=== PATIENT | female | born 1950 | race Caucasian/White ===

== ENCOUNTER → 2017-09-04 | Outpatient (CLI) | payer BC, MEDICARE | LOC: M WHC 10:53 | DX: Z12.31 Encounter for screening mammogram for malignant neoplasm of breast (principal); N95.9 Unspecified menopausal and perimenopausal disorder; Z78.0 Asymptomatic menopausal state; Z12.72 Encounter for screening for malignant neoplasm of vagina; Z92.29 Personal history of other drug therapy; Z12.12 Encounter for screening for malignant neoplasm of rectum | CPT/HCPCS: G0123 ==

== ENCOUNTER → 2017-09-04 | Outpatient (REF) | payer MEDICARE, BC | LOC: M SFHCWAGY 11:30 | DX: Z12.72 Encounter for screening for malignant neoplasm of vagina (principal) ==

== ENCOUNTER 2018-01-16 06:44 | Day surgery (SDC) | payer BC, MEDICARE, MEDICAID ==
[2018-01-16] MEDS ORDERED: PROPOFOL 200 MG/20 ML VIAL As Ordered ×4 (07:15)
[2018-01-16] MEDS: NS 1,000 ML IV ×2 (07:16)
== END 2018-01-16 09:13 | disposition home or self-care (01) ==
LOC: M OPP 06:44
DX: Z12.11 Encounter for screening for malignant neoplasm of colon (principal); D12.0 Benign neoplasm of cecum; D12.3 Benign neoplasm of transverse colon; D12.4 Benign neoplasm of descending colon; K57.30 Diverticulosis of large intestine without perforation or abscess without bleeding; I10 Essential (primary) hypertension; E78.5 Hyperlipidemia, unspecified; K57.32 Diverticulitis of large intestine without perforation or abscess without bleeding; K21.9 Gastro-esophageal reflux disease without esophagitis; M19.90 Unspecified osteoarthritis, unspecified site; Z79.899 Other long term (current) drug therapy
CPT/HCPCS: 45388

== ENCOUNTER → 2018-10-23 | Outpatient (REF) | payer BC, MEDICARE ==
[~2018-10-23] MED LIST: BISO5TAB2 PO; CALC600T68 PO; EZET10TA; MULT1TAB10 PO; SIMV20TA2; ZYRT10CA5 PO
[2018-10-25 14:21] LABS: HPV HYBRID CAPTURE II Negative (Negative)
== END ==
LOC: M SFHCWAGY 10:39
PROVIDERS: ATTEND Nurse Practitioner Family
DX: Z12.72 Encounter for screening for malignant neoplasm of vagina (principal)
CPT/HCPCS: 87624; G0123

== ENCOUNTER → 2018-10-23 | Outpatient (CLI) | payer BC, MEDICARE ==
--- NOTE | 2018-10-23 11:46 | REPMRS ---
Patient History The patient states she had a clinical breast exam in 09/2018. Patient is postmenopausal. No known family history of cancer. Taking unspecified hormones for 11 years. 3D TOMOSYNTHESIS WAS PERFORMED. Digital Woman Screen Mammo: October 23, 2018 - Exam #: [id number] Bilateral CC and MLO view(s) were taken. Technologist: Tiffani German, Technologist Prior study comparison: September 04, 2017, digital woman screen mammo performed at [facility]. May 13, 2016, digital woman screen mammo performed at [facility] to [facility]. FINDINGS: The breast tissue is heterogeneously dense. This may lower the sensitivity of mammography. There has been no change in the appearance of the mammogram from the prior studies. There is a moderate amount of residual fibroglandular tissue which is fairly symmetric. There is no interval development of dominant mass, areas of architectural distortion, or clustered microcalcification typical of malignancy. Assessment: BI-RADS/ACR category 1 mammogram. Negative Mammogram. Recommendation Routine screening mammogram in 1 year (for women over age 40). This mammogram was interpreted with the aid of an FDA-approved computer-aided dectection system. Electronically Signed By: Greg Sanders MD 10/23/18 [id number]
== END ==
LOC: M WHC 10:16
PROVIDERS: ATTEND Nurse Practitioner Family
DX: Z12.31 Encounter for screening mammogram for malignant neoplasm of breast (principal)

== ENCOUNTER → 2019-12-03 | Outpatient (CLI) | payer OTHER, MEDICARE ==
[~2019-12-03] MED LIST changes: +CALC1TAB8 PO; -CALC600T68 PO; -EZET10TA; +EZET10TA21; -SIMV20TA2; +SIMV20TA22
--- NOTE | 2019-12-04 09:52 | REPMRS ---
Patient History The patient states she had a clinical breast exam in November 2019.No known family history of cancer. Taking unspecified hormones for 11 years. Digital Woman Screen Mammo: December 03, 2019 - Exam #: [id number] Bilateral CC and MLO view(s) were taken. Technologist: Delia Arango, Technologist Prior study comparison: October 23, 2018, bilateral digital woman screen mammo performed at [facility]. September 04, 2017, digital woman screen mammo performed at [facility]. May 13, 2016, digital woman screen mammo performed at [facility]. FINDINGS: The breast tissue is heterogeneously dense. This may lower the sensitivity of mammography. There are stable nodular opacities again noted bilaterally. Scattered benign calcifications are present. There is a moderate amount of heterogeneously dense fibroglandular tissue which is fairly symmetric. There is no interval development of dominant mass, architectural distortion, or grouped microcalcification typical of malignancy. There has been no change in the appearance of the mammogram from the prior studies. 3-D tomosynthesis shows no additional findings. Assessment: BI-RADS/ACR category 2 mammogram. Benign Findings. Recommendation Routine screening mammogram of both breasts in 1 year (for women over age 40). This patient's Lifetime Breast Cancer RIsk is estimated at 5.4 %. This mammogram was interpreted with the aid of an FDA-approved computer-aided dectection system. Electronically Signed By: Jose Wilks MD 12/04/19 [id number]
== END ==
LOC: M WHC 10:34
PROVIDERS: ATTEND Nurse Practitioner Family
DX: Z12.31 Encounter for screening mammogram for malignant neoplasm of breast (principal)

== ENCOUNTER → 2020-12-03 | Outpatient (CLI) | payer OTHER, MEDICARE ==
--- NOTE | 2020-12-03 13:30 | REPMRS ---
Patient History The patient states she had a clinical breast exam in November 2020. No known family history of cancer. Taking estrogen for 15 years. Taking unspecified hormones for 11 years. No breast complaints today Patient signed the MRS sheet 1st covid vaccine 08/25/20-left arm-Moderna 2nd covid vaccine 09/22/20-left arm Priors on PACS Patient Identification Verified Digital Woman Screen Mammo: December 03, 2020 - Exam #: [id number] Bilateral CC and MLO view(s) were taken. Technologist: Sophia Engle, Technologist Prior study comparison: December 03, 2019, bilateral digital woman screen mammo performed at [facility] and [facility]. October 23, 2018, bilateral digital woman screen mammo performed at [facility]. FINDINGS: There are scattered fibroglandular densities. Screening. Digital screening (2D) mammography was performed bilaterally in the CC and MLO projections. Additionally, breast tomosynthesis (3D mammography) was performed bilaterally in the CC and MLO projections. Todays exam was compared to the prior exams(s). By history, the patient has no complaints of a palpable breast abnormality or other significant breast complaints. The breasts are unchanged in size and shape. There are no ny-soft tissue densities or spiculated masses. There is no internal architectural distortion. Once again, stable benign appearing calcifications are seen.There are no suspicious ny-calcific clusters. Skin thickening or nipple retraction is not present. IMPRESSION: BI-RADS Category 2- Benign Findings(s). There is no evidence of malignant alteration of the breasts. Followup examination recommended in one year. The Volpara volumetric breast density category is B, there are scattered areas of fibroglandular density. This mammogram was read with the assistance of [employer],an FDA approved computer aided detection system for mammography. The lifetime Tyrer-Cuzick score is 5'0 % Negative x-ray reports should not delay surgical consultation if a dominant or clinically suspicious mass is present. Not all breast cancers can be identified by mammography. Therefore, we recommend that you continue to perform regular breast self-examination and physical examination and then promptly contact your physician of any concerns or changes. Adenosis and dense breasts may obscure an underlying neoplasm. Assessment: BI-RADS/ACR category 2 mammogram. Benign Findings. Recommendation Routine screening mammogram of both breasts in 1 year. Electronically Signed By: Vijay Orr DO 12/03/20 1836
== END ==
LOC: M WHC 10:07
PROVIDERS: ATTEND Nurse Practitioner Women's Health
DX: Z12.31 Encounter for screening mammogram for malignant neoplasm of breast (principal)

== ENCOUNTER → 2022-04-28 | Outpatient (REF) | payer OTHER, MEDICARE ==
[~2022-04-28] MED LIST changes: +BISO1TAB18 PO; -BISO5TAB2 PO; -CALC1TAB8 PO; +CALC600T67 PO
== END ==
LOC: M SFHCWAGY 12:57
PROVIDERS: ATTEND Advanced Practice Midwife
DX: Z01.419 Encounter for gynecological examination (general) (routine) without abnormal findings (principal); Z85.44 Personal history of malignant neoplasm of other female genital organs; Z12.4 Encounter for screening for malignant neoplasm of cervix

== ENCOUNTER → 2022-04-28 | Outpatient (CLI) | payer OTHER, MEDICARE | LOC: M WHC 09:20 | PROVIDERS: ATTEND Advanced Practice Midwife | DX: Z12.31 Encounter for screening mammogram for malignant neoplasm of breast (principal) ==

== ENCOUNTER → 2023-08-30 | Outpatient (CLI) | payer OTHER, MEDICARE | LOC: M WHC 08:41 | PROVIDERS: ATTEND Advanced Practice Midwife | DX: Z12.31 Encounter for screening mammogram for malignant neoplasm of breast (principal); M81.0 Age-related osteoporosis without current pathological fracture ==